=== PATIENT | male | born 1990 | race Hispanic/Latino ===

== ENCOUNTER 2018-06-15 17:16 | Emergency (ER) | payer SELFPAY ==
[2018-06-15] MEDS ORDERED: TETRACAINE HCL 0.5% 4 ML OPHTH SOLN ONE (17:30)
[2018-06-15] MEDS ORDERED: FLUORESCEIN SODIUM 1 STRIP STRIP ONE (17:30)
[2018-06-15] MEDS ORDERED: NA BORATE/BORIC AC/H2O/NACL 120 ML OPHTH IRRIG SOLN ONE (17:30)
[2018-06-15] MEDS ORDERED: TETANUS/DIPHTHERIA TOXOID [ADULT] 0.5 ML VIAL IM ONE (17:56)
[2018-06-15] MEDS ORDERED: GENTAMICIN SULFATE 0.3% 5ML DROPS ONE (17:56)
== END 2018-06-15 18:04 | disposition home or self-care (01) ==
LOC: EDH 17:16
DX: S05.01XA Injury of conjunctiva and corneal abrasion without foreign body, right eye, initial encounter (principal); Z90.49 Acquired absence of other specified parts of digestive tract; X58.XXXA Exposure to other specified factors, initial encounter; Y93.89 Activity, other specified; Y92.89 Other specified places as the place of occurrence of the external cause; Y99.8 Other external cause status
CPT/HCPCS: 90471; 90714